=== PATIENT | female | born 1975 | race Caucasian/White ===

== ENCOUNTER 2017-02-17 10:05 | Inpatient (IN) | payer MEDICAID ==
[~2017-02-17] VITALS: Ht 147.3 cm; Wt 86.7 kg
[2017-02-17 10:21] VITALS: Ht 147.3 cm; Wt 86.7 kg
[2017-02-17 10:22] VITALS: BP 138/85; PULSE 72
[2017-02-17] MEDS ORDERED: PNV11TAB PO (10:23)
--- NOTE | 2017-02-17 11:14 | RADRPT ---
PROCEDURE: OB ultrasound for biophysical profile CLINICAL INDICATION: Gestational diabetes mellitus. TECHNIQUE: Multiple sonographic images of the pelvis were obtained. Transabdominal view of the gr avid uterus are available for review. The images were reviewed on a PACS workstation. COMPARISON: None FINDINGS: breathing movement = 2/2 tone = 2/2 motion = 2/2 Quantitative amniotic fluid volume = 2/2 JESSE = 6.6 cm Single live intrauterine with cardiac activity at 135 beats per minute. There is a left lateral placenta without previa or abruption. IMPRESSION: 1. Single living intrauterine gestation in cephalic position. 2. Biophysical profile = 8. 3. JESSE = 6.6 cm. RPTAT: [facility] Physician Mireya Date Time Electronically viewed and signed by Physician Mireya on 02/17/2017 11:13 /
[2017-02-17] MEDS: LACTATED RINGER'S 1,000 ML IV SCH ×2 (13:38→21:52)
--- NOTE | 2017-02-17 16:55 | RADRPT ---
PROCEDURE: US evaluation of amniotic fluid volume. CLINICAL INDICATION: Low amniotic fluid volume. TECHNIQUE: Multiple sonographic images of the gravid uterus were obtained utilizing jesus-scale conchita ging. Sagittal and transverse images were obtained. The images were reviewed on a PACS workstation . JESSE was measured. COMPARISON: No prior studies are available for comparison. FINDINGS: There is a single live intrauterine . heart rate is 129 beats per minute. Position is cephalic. Placenta is posterior lateral left grade II with no abruption or previa. JESSE is 4.3 cm. (Normal = 5-20 cm.) IMPRESSION: 1. JESSE is 4.3 cm. Oligohydramnios. RPTAT: QQ .Dwayne Taylor MD, MD Date Time Electronically viewed and signed by .Dwayne Taylor MD, on 02/17/2017 16:54 .R/
[2017-02-17] MEDS ORDERED: DEXTROSE 5%-LR 1,000 ML IV SCH (18:13)
[2017-02-17] MEDS ORDERED: AMPICILLIN 2 GM/NS (PMX) 100 ML IV ONE (18:30)
[2017-02-17] MEDS ORDERED: MAGNESIUM SULFATE 4 GM/100 ML 100 ML IVPB ONE (18:30)
[2017-02-17] MEDS ORDERED: LACTATED RINGER'S 1,000 ML IV PRN (18:30)
[2017-02-17] MEDS ORDERED: OXYTOCIN 30 UNITS/LR 500 ML IV PRN (18:30)
[2017-02-17] MEDS ORDERED: MISOPROSTOL 200 MCG TAB PR PRN (18:30)
[2017-02-17] MEDS ORDERED: METHYLERGONOVINE 0.2 MG INJ IM PRN (18:30)
[2017-02-17] MEDS ORDERED: CARBOPROST 250 MCG INJ IM PRN (18:30)
[2017-02-17] MEDS ORDERED: OXYTOCIN 30 UNITS/LR 500 ML IV SCH ×2 (18:30)
[2017-02-17] MEDS ORDERED: BUTORPHANOL 2 MG INJ IV PRN (18:30)
[2017-02-17] MEDS ORDERED: LIDOCAINE 1% (MPF) 30 ML INJ INJ PRN (18:30)
[2017-02-17] MEDS: MAGNESIUM SULFATE 20 GM/500 ML 500 ML IV SCH (19:09)
[2017-02-17] MEDS: OXYTOCIN 30 UNITS/LR 500 ML IV SCH (20:47)
[2017-02-17] MEDS: DEXTROSE 5%-LR 1,000 ML IV SCH (20:49)
--- NOTE | 2017-02-17 21:07 | HP ---
Date/Time of Note Date/Time of Note DATE: 02/17/17 TIME: 20:56 OB - History Hx of Present Free Text/Dictation 41 y.o at 38weeks NST BPP for A1DM shows JESSE 4.3 admitted for induction of labor random BS 109 GBS positive Hx of short labor VE /-2 pitocin will be used for IOL ADD BP. 116-158/66-83 PIH lab WNL Chief Complaint: IOL for oligohydroamnios Estimated Due Date: Mar 03, 2017 : 7 Para: 7 Spontaneous : 0 Therapeutic : 0 Care: Good Care Ultrasounds: Normal mid trimester US Obstetrical Complications: Gestational Diabetes Medical Complications: None Past Family/Social History * Past Medical, Surgical, Family and Obstetric Histories reviewed from chart. Blood Type: O+ Rubella: immune RPR/VDRL: Negative GBS Status: Positive HBsAG: Negative OB Admission Exam Vital Signs Vital Signs Vital Signs Date Time Temp Pulse Resp B/P Pulse Ox O2 Delivery O2 Flow Rate FiO2 02/17/17 10:22 98.7 72 138/85 Physical Exam HEENT: WNL Heart: Rhythm Normal Lungs: Clear, Equal Abdomen: WNL Extremities: Normal Reflexes: Normal Cervical Dilatation: 1cm Effacement: 50% Station: -2 Membranes: Intact Amniotic Fluid: Unevaluable Heart Rate: 130's Accelerations: Accelerations Present Decelerations: No Decelerations Varibility: Moderate Contractions on Admission: None Last 72 hourBlood Glucose Bedside Glucose - 72 Hours Test 02/17/17 10:27 02/17/17 20:46 Bedside Glucose 109mg/dL (70-220) 69mg/dL (70-220) L Last 72 hours Lab Results CBC & BMP 02/17/17 13:31 02/17/17 18:52 Liver Function Test 02/17/17 13:31 Alanine Aminotransferase (ALT/SGPT) 23 Albumin 3.4 Alkaline Phosphatase 112 Aspartate Amino Transf (AST/SGOT) 27 Direct Bilirubin 0.00 Total Protein 7.0 OB Assessment/Plan Reason for admission: induction of labor Other Assessment: IUP 38w oligohydroamnios A1DM Plan: Induction Induction Method: per Pitocin Protocol MARISOL HUFF MD Feb 17, 2017 21:06
[2017-02-17] MEDS ORDERED: ACETAMINOPHEN 325 MG TAB PO PRN (23:30)
[2017-02-17] MEDS: ACETAMINOPHEN 325 MG TAB PO PRN (23:45)
[2017-02-18] MEDS: AMPICILLIN 1 GM/NS (PMX) 50 ML IV SCH ×7 (00:18→20:53)
[2017-02-18] MEDS: LACTATED RINGER'S 1,000 ML IV SCH ×9 (02:13→22:18)
[2017-02-18] MEDS: MAGNESIUM SULFATE 20 GM/500 ML 500 ML IV SCH ×2 (05:23→14:52)
[2017-02-18] MEDS ORDERED: DINOPROSTONE 10 MG VAG SUPP VAG ONE (09:00)
[2017-02-18] MEDS: ACETAMINOPHEN 325 MG TAB PO PRN ×2 (10:26→21:20)
[2017-02-18] MEDS: DEXTROSE 5%-LR 1,000 ML IV SCH ×2 (12:26→20:26)
[2017-02-18] MEDS: BUTORPHANOL 2 MG INJ IV PRN (15:08)
--- NOTE | 2017-02-18 16:12 | PN ---
Date/Time of Note Date/Time of Note DATE: 02/18/17 TIME: 16:11 OB Subjective Subjective Subjective No complaint of uterine contractions 41-year-old female with class A1 diabetes and elevated blood pressure and oligohydramnios admitted for induction of labor at 38 weeks OB Objective Objective Objective Vital signs are stable Cervix is long 1 or 2 cm presenting part vertex at -3 station On electronic monitoring irregular uterine contractions seen Pitocin was changed to Cervidil OB Assessment/Plan Reason for admission: induction of labor Other Assessment: Oligohydramnios Possible severe PIH Class A1 diabetes Other plan: Cervidil was reinserted MALVIN SOTELO MD Feb 18, 2017 16:12
--- NOTE | 2017-02-19 01:04 | RADRPT ---
PROCEDURE: Obstetrical ultrasound, limited. CLINICAL INDICATION: Pelvic pain. TECHNIQUE: Multiple sonographic images of the pelvis were obtained using transabdominal technique . Images were obtained with jesus scale and color Doppler. The images were reviewed on a PACS works tation. COMPARISON: 02/17/2017. FINDINGS: There is a single living intrauterine gestation with the fetus in a vertex presentation. hear t tones of 124 beats per minute are identified. The placenta is posterior in location, grade 2. Th ere is no evidence of placenta previa or abruption. Measurements were made in order to determine age. The results are as follows: BPD =9.01 cm HC =32.79 cm AC =35.72 cm FL =6.93 cm. Estimated gestational age of approximately 37 weeks and 2 days. The estimated date of delivery is 03/09/2017. The EFW = 3391 +/- 509 grams. Estimated weight percentage equals 61.9%. IMPRESSION: Single viable intrauterine gestation of approximately 37 weeks and 2 days, with an ultrasound EMANUEL of 03/09/2017. .Shree Zhang MD, MD Date Time Electronically viewed and signed by .Shree Zhang MD, MD on 02/19/2017 01:04 .T/
[2017-02-19] MEDS: MAGNESIUM SULFATE 20 GM/500 ML 500 ML IV SCH ×3 (01:09→20:30)
[2017-02-19] MEDS: AMPICILLIN 1 GM/NS (PMX) 50 ML IV SCH ×6 (01:37→22:46)
[2017-02-19] MEDS: LACTATED RINGER'S 1,000 ML IV SCH ×7 (02:13→23:48)
[2017-02-19] MEDS: DEXTROSE 5%-LR 1,000 ML IV SCH ×3 (04:26→20:26)
[2017-02-19] MEDS ORDERED: DINOPROSTONE 10 MG VAG SUPP VAG ONE (15:30)
[2017-02-19] MEDS: ACETAMINOPHEN 325 MG TAB PO PRN (16:57)
--- NOTE | 2017-02-19 18:01 | PN ---
Date/Time of Note Date/Time of Note DATE: 02/19/17 TIME: 17:58 OB Subjective Subjective Subjective Was complaining of feeling dizzy after insertion of Cervidil OB Objective Objective Objective Blood pressure and vital signs are otherwise stable General physical exam is unchanged heart tones are reactive Cervix is long and fingertip, presenting part was vertex at -3 station OB Assessment/Plan Reason for admission: induction of labor Other Assessment: Oligohydramnios Class A1 diabetes Possible -induced hypertension 38 weeks gestation Other plan: We will reinsert Cervidil for cervical ripening Magnesium sulfate was withheld because of patient's discomfort We will continue to monitor vital signs and possibly restart magnesium sulfate and patient feels better MALVIN SOTELO MD Feb 19, 2017 18:01
[2017-02-19] MEDS ORDERED: MINERAL OIL LIGHT 10 ML VIAL TOP PRN (18:30)
[2017-02-19] MEDS: DOCUSATE SODIUM 100 MG CAP PO SCH (23:00)
[2017-02-20] MEDS: LACTATED RINGER'S 1,000 ML IV SCH ×9 (00:03→22:29)
[2017-02-20] MEDS: ACETAMINOPHEN 325 MG TAB PO PRN (00:37)
[2017-02-20] MEDS: AMPICILLIN 1 GM/NS (PMX) 50 ML IV SCH ×6 (02:31→22:28)
[2017-02-20] MEDS: DEXTROSE 5%-LR 1,000 ML IV SCH ×3 (04:26→20:26)
[2017-02-20] MEDS: BUTORPHANOL 2 MG INJ IV PRN (05:18)
[2017-02-20] MEDS: MAGNESIUM SULFATE 20 GM/500 ML 500 ML IV SCH ×2 (06:30→09:09)
[2017-02-20] MEDS: DOCUSATE SODIUM 100 MG CAP PO SCH ×2 (10:35→22:30)
--- NOTE | 2017-02-20 13:34 | RADRPT ---
Vent Rate: 63 bpm RR Interval: 0 msec GA Interval: 142 msec QRS Duration: 82 msec QT Interval: 472 msec QTC Interval: 483 msec P-R-T [place]ohn: 16 - 18 - -8 degrees Normal sinus rhythm Nonspecific T wave abnormality Prolonged QT Abnormal ECG Electronically Signed By: Zhou Winters [id number]
--- NOTE | 2017-02-20 13:34 | RADRPT ---
Vent Rate: 63 bpm RR Interval: 0 msec FL Interval: 142 msec QRS Duration: 82 msec QT Interval: 472 msec QTC Interval: 483 msec P-R-T [place]: 16 - 18 - -8 degrees Normal sinus rhythm Nonspecific T wave abnormality Prolonged QT Abnormal ECG Electronically Signed By: Zhou Winters [id number]
--- NOTE | 2017-02-20 13:34 | RADRPT ---
Vent Rate: 63 bpm RR Interval: 0 msec [place] Interval: 142 msec QRS Duration: 82 msec QT Interval: 472 msec QTC Interval: 483 msec P-R-T [place]: 16 - 18 - -8 degrees Normal sinus rhythm Nonspecific T wave abnormality Prolonged QT Abnormal ECG Electronically Signed By: Zhou Winters [id number]
[2017-02-20] MEDS ORDERED: morphine 10 MG INJ IM ONE (14:00)
--- NOTE | 2017-02-20 17:47 | PN ---
Date/Time of Note Date/Time of Note DATE: 02/20/17 TIME: 17:44 OB Subjective Subjective Subjective Currently complaining of minimal uterine contractions OB Objective Objective Objective General physical exam is unchanged Cervix is 50% on 1 cm Membranes were ruptured; amniotic fluid appeared clear OB Assessment/Plan Reason for admission: induction of labor Other Assessment: Oligohydramnios Gestational diabetes 38 + weeks gestation Poor response to induction Grand multiparity Other plan: We will augment labor with Pitocin and continue until vaginal delivery occurs MALVIN SOTELO MD Feb 20, 2017 17:47
[2017-02-20] MEDS ORDERED: OXYTOCIN 30 UNITS/LR 500 ML IV SCH (18:30)
[2017-02-20] MEDS: OXYTOCIN 30 UNITS/LR 500 ML IV SCH (18:44)
[2017-02-20] MEDS ORDERED: MAGNESIUM SULFATE 20 GM/500 ML 500 ML IV SCH (21:47)
[2017-02-21] MEDS: AMPICILLIN 1 GM/NS (PMX) 50 ML IV SCH ×3 (02:32→09:57)
[2017-02-21] MEDS: LACTATED RINGER'S 1,000 ML IV SCH ×2 (02:48→06:07)
[2017-02-21] MEDS: DEXTROSE 5%-LR 1,000 ML IV SCH (03:18)
[2017-02-21] MEDS ORDERED: FENTAnyl 2MCG/ML-ROPIV 0.2% 0 ML ONE (05:28)
[2017-02-21] MEDS ORDERED: ONDANSETRON 4 MG INJ ONE (05:33)
[2017-02-21] MEDS ORDERED: ONDANSETRON 4 MG INJ IV ONE (05:35)
[2017-02-21] MEDS ORDERED: DIPHENHYDRAMINE 50 MG INJ IV PRN (07:30)
[2017-02-21] MEDS: DOCUSATE SODIUM 100 MG CAP PO SCH (09:00)
[2017-02-21] MEDS ORDERED: MINERAL OIL LIGHT 10 ML VIAL TOP ONE (09:30)
[2017-02-21] MEDS ORDERED: FENTAnyl 2MCG/ML-ROPIV 0.2% 100 ML ONE (14:09)
[2017-02-21] MEDS ORDERED: FENTAnyl 2MCG/ML-ROPIV 0.2% 100 ML BAG EPI SCH (14:30)
[2017-02-21] MEDS ORDERED: NALOXONE (0.4 MG/ML) INJ IV PRN (14:30)
--- NOTE | 2017-02-21 14:58 | LDN ---
Date/Time of Note Date/Time of Note DATE: 02/21/17 TIME: 14:55 Delivery Summary Normal spontaneous vaginal delivery of a viable over intact perineum Weeks of Gestation 38+ Placenta Delivered: Spontaneously, Intact & Complete Meconium: none Episiotomy: No Perineal laceration: 0 Anesthesia type: Epidural Estimated blood loss: 300 Sponge & Needle done & correct: Yes All needle counts correct: Yes Any foreign bodies felt in the: No Problems: Infant Delivery Information Sex Infant Sex: male Apgars 1 Minute: 9 5 Minute: 9 Suctioning Nose & mouth suctioned at pilar: Yes Delee suction performed: No Umbilical Cord Umbilical cord with: 3 Vessels Cord presentations: no nuchal cord Cord Blood was obtained: Yes Mother & Baby Disposition Disposition Mom & Baby to Maternity; Good: Yes (Mother and baby were recovered in good condition) Mom transferred to: Other (Maternity) Baby to NICU: No MALVIN SOTELO MD Feb 21, 2017 14:58
[2017-02-21] MEDS ORDERED: IBUPROFEN 600 MG TAB PO ONE (16:00)
[2017-02-21 17:30] VITALS: BP 155/80; PULSE 74; RESP 18
[2017-02-21] MEDS ORDERED: CARBOPROST 250 MCG INJ IM PRN (17:30)
[2017-02-21] MEDS ORDERED: LANOLIN 7 GM TUBE TOP PRN (17:30)
[2017-02-21] MEDS ORDERED: METHYLERGONOVINE 0.2 MG INJ IM PRN (17:30)
[2017-02-21] MEDS ORDERED: ZOLPIDEM 5 MG TAB PO PRN (17:30)
[2017-02-21] MEDS ORDERED: WITCH HAZEL/GLYCERIN PAD PR PRN (17:30)
[2017-02-21] MEDS ORDERED: MISOPROSTOL 200 MCG TAB PR PRN (17:30)
[2017-02-21] MEDS ORDERED: OXYTOCIN 30 UNITS/LR 500 ML IV PRN (17:30)
[2017-02-21] MEDS ORDERED: BENZOCAINE 20% 56 ML SPRAY TOP PRN (17:30)
[2017-02-21] MEDS ORDERED: DIBUCAINE 1% 30 GM OINT TOP PRN (17:30)
[2017-02-21] MEDS ORDERED: HYDROCODONE/APAP (5/325) TAB PO PRN ×2 (17:30)
[2017-02-21] MEDS: IBUPROFEN 600 MG TAB PO SCH ×2 (18:00→23:47)
[2017-02-21] MEDS ORDERED: ACCU-CHEK XX SCH (19:35)
[2017-02-21 19:40] VITALS: BP 140/65; PULSE 72; RESP 19
[2017-02-21] MEDS: MAGNESIUM HYDROXIDE 30ML CUP PO SCH (21:11)
[2017-02-21] MEDS: SENNA/DOCUSATE NA (8.6MG/50MG) TAB PO SCH (21:11)
[2017-02-21] MEDS: metFORMIN (XR) 500 MG TAB PO SCH (22:00)
[2017-02-21] MEDS: LACTATED RINGER'S 1,000 ML IV* SCH (22:05)
[2017-02-22] VITALS: BP 142/67; PULSE 75; RESP 18
[2017-02-22] MEDS: LACTATED RINGER'S 1,000 ML IV* SCH (01:02)
[2017-02-22 04:35] VITALS: BP 140/82; PULSE 72; RESP 18
[2017-02-22] MEDS: IBUPROFEN 600 MG TAB PO SCH ×4 (06:01→23:17)
[2017-02-22 08:36] VITALS: BP 141/93; PULSE 70; RESP 18
[2017-02-22] MEDS: metFORMIN (XR) 500 MG TAB PO SCH ×2 (09:03→20:51)
[2017-02-22] MEDS: MAGNESIUM HYDROXIDE 30ML CUP PO SCH ×2 (09:03→20:50)
[2017-02-22] MEDS: SENNA/DOCUSATE NA (8.6MG/50MG) TAB PO SCH ×2 (09:03→20:50)
[2017-02-22 16:05] VITALS: BP 137/65; PULSE 56; RESP 18
--- NOTE | 2017-02-22 16:52 | DS ---
Date/Time of Note Date/Time of Note Home following day DATE: 02/22/17 TIME: 16:51 Obstetrical Discharge Record Final Diagnosis Final Diagnosis: Term delivered Other Final Diagnosis Status post vaginal delivery Vaginal Delivery Obstetrical Delivery: Spontaneous Complications Gestational Diabetes Augmentation: Yes Induction: Yes Condition on Discharge Physical Assessment Last Vitals: See nurse's notes Voiding: Yes Bowel Movement: Yes Breast: Soft, non-tender, Filling Fundus: Firm Abdomen and Incision: Abdomen is soft bowel sounds present fundus is bellybutton Episiotomy: Not applicable Calf Tenderness: No Patient Condition: Good MALVIN SOTELO MD Feb 22, 2017 16:52
--- NOTE | 2017-02-22 16:53 | PD.PPDC ---
INFORMATION AND REFERRAL DIRECTOR Discharge Instruction Provider Information Physician Information 41-year-old female had vaginal delivery after 3 days of induction Diagnosis Final Diagnosis: Status post vaginal delivery Condition Patient Condition: Good Diet Diet: Special Diet (2000-calorie ADA diet) Activity/Restrictions Activity: Normal Activity May Shower Restrictions: Nothing in the Vagina Return to Work or School: Apr 14, 2017 Follow-up Follow-up with Physician: 4, Week/Weeks (In clinic for follow-up) Return to clinic for OB Instructions: Breast Tenderness Depression Comment: Pelvic rest for 6 weeks MALVIN SOTELO MD Feb 22, 2017 16:53
[2017-02-22] MEDS ORDERED: IBUP-1542 PO (16:54)
[2017-02-22 19:50] VITALS: BP 135/82; PULSE 60; RESP 18
[2017-02-23 03:28] VITALS: BP 143/84; RESP 18
[2017-02-23] MEDS: IBUPROFEN 600 MG TAB PO SCH ×2 (05:40→11:29)
[2017-02-23 08:00] VITALS: BP 137/70; PULSE 72; RESP 18
[2017-02-23] MEDS: MAGNESIUM HYDROXIDE 30ML CUP PO SCH (09:00)
[2017-02-23] MEDS ORDERED: VARICELLA VACCINE LIVE/PF 1,350 UNIT/0.5 ML ML SC* ONE (09:00)
[2017-02-23] MEDS: SENNA/DOCUSATE NA (8.6MG/50MG) TAB PO SCH (09:00)
[2017-02-23] MEDS ORDERED: DIPHTH/TET/ACEL PERTUSS (ADULT) 0.5 ML VIAL IM* ONE (09:00)
[2017-02-23] MEDS ORDERED: MEASLES,MUMPS,RUBELLA VACCINE INJ SC* ONE (09:00)
[2017-02-23] MEDS: metFORMIN (XR) 500 MG TAB PO SCH (09:13)
== END 2017-02-23 15:37 | disposition home or self-care (01) | DRG 775 ==
LOC: L-D 10:05 → OBT 10:05 → OBG 15:59 → L-D 16:22 → OBT 18:00 → L-D 18:00 → PP1 02-21 17:21
PROVIDERS: ADMIT Obstetrics & Gynecology; ATTEND Obstetrics & Gynecology
PROC: 3E0P3VZ Introduction of Hormone into Female Reproductive, Percutaneous Approach (ICD-10-PCS; 2017-02-17)
PROC: 3E0P7VZ Introduction of Hormone into Female Reproductive, Via Natural or Artificial Opening (ICD-10-PCS; 2017-02-18)
PROC: 10E0XZZ Delivery of Products of Conception, External Approach (ICD-10-PCS; principal; 2017-02-21)
DX: O41.03X0 Oligohydramnios, third trimester, not applicable or unspecified (principal); O24.429 Gestational diabetes mellitus in childbirth, unspecified control; Z37.0 Single live birth; Z3A.38 38 weeks gestation of pregnancy; O99.824 Streptococcus B carrier state complicating childbirth
CPT/HCPCS: 36415; 76815; 76818; 80053; 81001; 82962; 83735; 84560; 85025; 85384; 85610; 85730; 86592; 86900; 86901; 90715; 90716; 93005; 96360; 96361; G0463; J0290; J0595; J1200; J2270; J2405; J2590; J3010; J3475; J7120; J7121